=== PATIENT | male | born 1965 | race Caucasian/White ===

== ENCOUNTER 2017-04-29 19:19 | Inpatient (IN) | payer OTHER ==
[~2017-04-29] VITALS: Ht 170.2 cm; Wt 69.1 kg
[2017-04-29] MEDS ORDERED: HYDRALAZINE HCL50 MG PO (23:06)
[2017-04-29] MEDS ORDERED: LASIX 40 MG TAB40 MG PO (23:06)
[2017-04-29] MEDS ORDERED: COREG 12.5MG12.5 MG PO (23:07)
[2017-04-29] MEDS ORDERED: MAG-OX 400 TAB400 MG PO (23:08)
[2017-04-29] MEDS ORDERED: TACROLIMUS1 MG PO (23:08)
[2017-04-29] MEDS ORDERED: PROTONIX 40 MG40 M1 PO (23:09)
[2017-04-29] MEDS ORDERED: VITAMIN D-32000 UNIT PO (23:09)
[2017-04-29] MEDS ORDERED: PHOSLO 667 MG667 MG PO (23:10)
[2017-04-30 03:48] LABS: HEMOGLOBIN 7.4 gm/dl (14.0-17.5); RED BLOOD COUNT 2.55 M/UL (4.20-5.50); WHITE BLOOD COUNT 3.5 K/UL (4.5-11.0)
[2017-05-01 03:51] LABS: HEMOGLOBIN 7.1 gm/dl (14.0-17.5); RED BLOOD COUNT 2.45 M/UL (4.20-5.50); WHITE BLOOD COUNT 4.2 K/UL (4.5-11.0)
[2017-05-01 04:10] LABS: BUN/CREATININE RATIO 7 (0-10)
[2017-05-01 15:23] LABS: HEMOGLOBIN 6.8 gm/dl (14.0-17.5)
[2017-05-02 03:32] LABS: WHITE BLOOD COUNT 4.9 K/UL (4.5-11.0)
[2017-05-02 03:35] LABS: RED BLOOD COUNT 2.83 M/UL (4.20-5.50)
[2017-05-02 03:50] LABS: BUN/CREATININE RATIO 6 (0-10)
[2017-05-03 03:56] LABS: HEMOGLOBIN 8.2 gm/dl (14.0-17.5); RED BLOOD COUNT 2.93 M/UL (4.20-5.50)
[2017-05-03 04:23] LABS: BUN/CREATININE RATIO 7 (0-10)
[2017-05-04 03:33] LABS: HEMOGLOBIN 9.2 gm/dl (14.0-17.5)
[2017-05-04 03:34] LABS: RED BLOOD COUNT 3.24 M/UL (4.20-5.50)
[2017-05-04 03:56] LABS: BUN/CREATININE RATIO 6 (0-10)
[2017-05-05 03:43] LABS: WHITE BLOOD COUNT 7.2 K/UL (4.5-11.0)
[2017-05-05 03:55] LABS: RED BLOOD COUNT 2.86 M/UL (4.20-5.50)
[2017-05-05 04:04] LABS: BUN/CREATININE RATIO 5 (0-10)
[2017-05-05 08:57] LABS: HEMOGLOBIN 8.3 gm/dl (14.0-17.5)
[2017-05-06 05:42] LABS: RED BLOOD COUNT 2.86 M/UL (4.20-5.50)
[2017-05-06 05:47] LABS: WHITE BLOOD COUNT 9.4 K/UL (4.5-11.0)
[2017-05-06] MEDS ORDERED: NORVASC 5 MG TAB5 MG PO (13:58)
[2017-05-06] MEDS ORDERED: ASPIRIN81 MG PO (13:58)
[2017-05-06] MEDS ORDERED: FERROUS SULFAT325 MG PO (13:58)
[2017-05-06] MEDS ORDERED: NORCO 5-325 TA1 EACH PO (13:59)
[2017-05-23] MEDS ORDERED: ZITHROMAX250 MG PO (15:14)
== END 2017-05-06 15:04 | disposition home or self-care (01) | DRG 981 ==
LOC: CCU 19:29 → MED SURG 4 05-05 13:51
PROVIDERS: Family Medicine; Internal Medicine; Internal Medicine Nephrology; Surgery; ADMIT Hospitalist
PROC: 5A1D60Z (ICD-10-PCS; 2017-04-30)
PROC: 30233N1 Transfusion of Nonautologous Red Blood Cells into Peripheral Vein, Percutaneous Approach (ICD-10-PCS; 2017-05-01)
PROC: 0JH63XZ Insertion of Tunneled Vascular Access Device into Chest Subcutaneous Tissue and Fascia, Percutaneous Approach (ICD-10-PCS; 2017-05-03)
PROC: 02HV33Z Insertion of Infusion Device into Superior Vena Cava, Percutaneous Approach (ICD-10-PCS; 2017-05-03)
PROC: B518ZZA Fluoroscopy of Superior Vena Cava, Guidance (ICD-10-PCS; 2017-05-03)
PROC: 0WHG43Z Insertion of Infusion Device into Peritoneal Cavity, Percutaneous Endoscopic Approach (ICD-10-PCS; principal; 2017-05-03 14:30)
DX: T86.12 Kidney transplant failure (principal); N18.6 End stage renal disease; I12.0 Hypertensive chronic kidney disease with stage 5 chronic kidney disease or end stage renal disease; J98.11 Atelectasis; E87.2 Acidosis; E87.1 Hypo-osmolality and hyponatremia; E87.70 Fluid overload, unspecified; I16.0 Hypertensive urgency; J44.9 Chronic obstructive pulmonary disease, unspecified; D50.9 Iron deficiency anemia, unspecified; Y83.0 Surgical operation with transplant of whole organ as the cause of abnormal reaction of the patient, or of later complication, without mention of misadventure at the time of the procedure; E87.5 Hyperkalemia; D63.1 Anemia in chronic kidney disease; R33.9 Retention of urine, unspecified; I27.2 Other secondary pulmonary hypertension; I08.1 Rheumatic disorders of both mitral and tricuspid valves; R07.89 Other chest pain; F17.200 Nicotine dependence, unspecified, uncomplicated; Z87.11 Personal history of peptic ulcer disease; Z79.899 Other long term (current) drug therapy; Z80.1 Family history of malignant neoplasm of trachea, bronchus and lung; Z82.49 Family history of ischemic heart disease and other diseases of the circulatory system
CPT/HCPCS: ECHO; 36415; 36430; 71010; 77001; 78452; 80048; 80053; 80074; 82550; 82553; 82728; 83540; 83550; 83605; 83735; 83880; 84100; 84484; 85014; 85018; 85027; 85610; 85730; 86850; 86900; 86901; 86920; 90935; 90937; 93005; 93017; 93306; 94640; 94664; 97116; 97530; A9502; C1752; C1769; C1788; J0360; J0690; J1644; J1756; J2270; J2405; J2597; J2710; J2785; J3010; J3370; J7030; J7040; J7050; J7120; P9016